=== PATIENT | male | born 1960 | race Caucasian/White ===

== ENCOUNTER 2020-05-01 06:58 | Outpatient (NON) | payer BC, SELFPAY ==
[2020-05-01 11:09] LABS: Influenza Control Positive
[2020-05-01 18:22] LABS: SARS-CoV-2 RNA PCR Negative
== END 2020-05-01 06:59 ==
LOC: ANHCOVIDDT 07:13
PROVIDERS: Visit Provider Family Medicine
DX: R05 Cough (principal); Z20.828 Contact with and (suspected) exposure to other viral communicable diseases
CPT/HCPCS: 87635; 87804; C9803; U0003

== ENCOUNTER 2021-03-03 19:47 | Emergency (ER) | payer BC, SELFPAY ==
--- NOTE | 2021-03-03 19:50 | ED.SKABFB ---
HPI - Skin/Abscess/Foreign Bdy General Chief complaint: Skin/Abscess/Foreign Body Stated complaint: Insect Bite Rt leg Time Seen by Provider: 03/03/21 19:57 Source: patient and RN notes reviewed Mode of arrival: ambulatory Limitations: no limitations History of Present Illness HPI narrative: 60-year-old male presents concern for possible spider bite. He reports he was in [place] on , believes he may have been bit by a spider while he was cleaning brush. He reports a raised bumpy red area on his right lower leg that gets darker in color as the days goes on. He reports the area is surrounded by it similar color papular rash. He reports the area is slightly itchy. He denies any tenderness, drainage from any area. He reports the papular rashes on both arms and legs that also started after he was cleaning the brush. Reports he was attacked by rolanda HINES complaint: insect bite/sting Related Data Home Medications Medication Instructions Recorded Confirmed albuterol sulfate 90 mcg INHALATION PRN PRN 04/21/19 03/03/21 rosuvastatin 10 mg tablet 10 mg PO DAILY 03/20/20 03/03/21 budesonide-formoterol HFA 160 2 puff INHALATION .qd g 05/09/20 03/03/21 mcg-4.5 mcg/actuation aerosol inhaler tamsulosin 0.4 mg capsule 0.4 mg PO DAILY 05/09/20 03/03/21 Allergies Allergy/AdvReac Type Severity Reaction Status Date / Time atorvastatin [From Lipitor] Allergy Severe Other Verified 03/03/21 19:59 prochlorperazine Allergy Severe Hallucinati Verified 03/03/21 19:59 ng amoxicillin Allergy Mild Rash Verified 03/03/21 19:59 Penicillins Allergy Mild Rash Verified 03/03/21 19:59 Review of Systems Review of Systems: CONSTITUTIONAL: Denies malaise, chills, sweats, or fever. ENT: Denies swollen lips, swollen tongue SKIN: Reports a cluster of red bumps to the right leg, reports red papular rash to the bilateral arms and legs MUSCULOSKELETAL: Denies myalgia. All systems reviewed & are unremarkable except as noted in HPI and below PMFSH Past Medical History Medical History Asthma Heart rate fast Recurrent sinusitis Family History Family History Sibling Patient's sister is in good health Carcinoma of colon Mother Family history of cardiovascular disease, Onset Age: 68 Father Family history of cardiovascular disease, Onset Age: 57 Grandparent Family history of cardiovascular disease, Onset Age: 48 Social History Social History Smoking status: Former smoker Second hand tobacco smoke exposure: Yes Smoking end date: 05/31/95 Alcohol intake: current Drinks per week: 5 Alcohol use details: wine Substance use: never Substance use type: does not use Gender identity (if verbalized by the patient): Male Spiritual care concerns: No Agree to blood products: Yes Comments At time of signature, agree with nursing past medical, surgical, social and family history. There is no relevant family history pertinent to the presenting complaint Exam Narrative: GENERAL: Well-appearing, well-nourished, and in no acute distress. HEAD: Normocephalic, atraumatic. EYES: PERRLA, conjunctivae clear ENT: Mucous membranes moist. NECK: Supple. No lymphadenopathy CHEST: Clear to auscultation. No respiratory distress. HEART: Regular rate and rhythm. SKIN: Warm, dry. Dark erythematous papular rash noted to bilateral arms and legs with a cluster of papules approximately 2 cm in diameter, irregular noted to the right inner lower leg NEURO: Alert and oriented x3. PSYCH: Normal mood and affect Course Course Emergency Course: Patient is aware of diagnosis, understands and agrees to treatment plan. Anticipatory guidance given. Patient agrees to follow-up as directed and is aware of reasons to seek care at the emergency
[2021-03-03 19:54] VITALS: BP 136/96; PULSE 100; RESP 18; TEMP 37.4; O2SAT 97
[2021-03-03 19:59] VITALS: BP 136/96; PULSE 100; RESP 18; TEMP 37.4; O2SAT 97
== END 2021-03-03 20:09 | disposition home or self-care (01) ==
PROVIDERS: Emergency Provider Nurse Practitioner; PCP Family Medicine
DX: R21 Rash and other nonspecific skin eruption (principal); Z87.891 Personal history of nicotine dependence; J45.909 Unspecified asthma, uncomplicated
CPT/HCPCS: 99213; G0463